=== PATIENT | male | born 1975 | race Hispanic/Latino ===

== ENCOUNTER 2023-02-14 07:14 | Day surgery (SDC) | payer OTHER ==
[2023-02-09 08:55] LABS: BASOPHILS # (AUTO) 0.04 K/uL (0.00-0.20); BASOPHILS % (AUTO) 0.6 % (0.0-5.0); EOSINOPHILS # (AUTO) 0.22 K/uL (0.00-0.70); EOSINOPHILS % (AUTO) 3.2 % (0.0-8.0); HEMATOCRIT 43.7 % (42-54); IMMATURE GRANULOCYTE ABSOLUTE 0.02 K/uL (0-1); LYMPHOCYTES # (AUTO) 2.7 K/uL (1.0-4.8); LYMPHOCYTES % (AUTO) 39.5 % (21.0-51.0); MEAN CORPUSCULAR HEMOGLOBIN 30.9 pg (27.0-33.0); MEAN CORPUSCULAR HGB CONC 35.2 g/dL (32.0-36.0); MEAN CORPUSCULAR VOLUME 87.6 fL (79-99); MONOCYTES # (AUTO) 0.4 K/uL (0.1-1.0); MONOCYTES % (AUTO) 6.4 % (3.0-13.0); NEUTROPHILS # (AUTO) 3.4 K/uL (1.8-7.7); PLATELET COUNT (AUTO) 228 K/uL (130-400); RED BLOOD CELL COUNT(AUTO) 4.99 MIL/uL (4.50-6.20); RED CELL DISTRIBUTION WIDTH 13.5 % (11.0-15.5); WHITE BLOOD COUNT (AUTO) 6.8 K/uL (4.8-10.8)
[2023-02-09 09:05] LABS: POTASSIUM 3.7 mmol/L (3.5-5.1)
[2023-02-09 09:15] LABS: INR 0.94 (0.85-1.15); PROTHROMBIN TIME 10.9 SEC (9.6-11.6)
[2023-02-09 09:16] LABS: PARTIAL THROMBOPLASTIN TIME 32.7 SEC (26.3-35.5)
[2023-02-09 09:37] VITALS: BP 152/85; PULSE 63; RESP 16
[2023-02-14] VITALS (17 sets, daily range): BP systolic 96–118; BP diastolic 55–72; PULSE 55–70; RESP 12–18
[~2023-02-14] VITALS: Ht 165.1 cm; Wt 106.2 kg
[~2023-02-14 07:14] MED LIST: ACAM333T7 PO; FLUO20CA36 PO; GABA600T10 PO; LISI20TA24 PO; METF-446 PO; TRAZ-187 PO
[2023-02-14] MEDS ORDERED: 0.9%NACL 1000ML 1,000 ML IV ONE (08:05)
[2023-02-14] MEDS ORDERED: CEFAZOLIN SODIUM 1 GM VIAL ONE (08:05)
[2023-02-14] MEDS ORDERED: BUPIVACAINE/PF 0.5% 30ML VIAL ONE (08:15)
[2023-02-14] MEDS ORDERED: FENTANYL CITRATE PF 50 MCG/1 ML 2ML VIAL ONE ×3 (08:43→08:54)
[2023-02-14] MEDS ORDERED: MIDAZOLAM HCL 1 MG/ML 2ML VIAL ONE (08:43)
[2023-02-14] MEDS ORDERED: LIDOCAINE PF 100MG/5ML (2%) SYRINGE 5ML ONE (08:53)
[2023-02-14] MEDS ORDERED: SUCCINYLCHOLINE 200MG/10ML SYR ONE (08:53)
[2023-02-14] MEDS ORDERED: DEXAMETHASONE SOD PHOSPHATE 10MG/ML 1ML VIAL ONE (08:53)
[2023-02-14] MEDS ORDERED: NEOSTIGMINE 5MG/5ML SYR IV ONE (08:53)
[2023-02-14] MEDS ORDERED: GLYCOPYRROLATE 1 MG/5 ML SYRINGE ONE (08:53)
[2023-02-14] MEDS ORDERED: PROPOFOL 10 MG/ML 20ML VIAL IV ONE (08:53)
[2023-02-14] MEDS ORDERED: ROCURONIUM 10MG/1ML SYR 10 MG/ML ML ONE (08:54)
[2023-02-14] MEDS ORDERED: CEFAZOLIN SODIUM 2 GM VIAL IVPB ONE (09:00)
[2023-02-14] MEDS ORDERED: KETOROLAC 30MG VIAL (30MG/ML) ONE (09:24)
[2023-02-14] MEDS ORDERED: ROPIVACAINE 0.5% 5MG/ML 30ML IJ ONE (09:26)
[2023-02-14] MEDS ORDERED: FENTANYL CITRATE PF 50 MCG/1 ML 5ML AMP IV ONE ×2 (09:26→12:55)
[2023-02-14] MEDS ORDERED: KETAMINE 50MG/ML SYRINGE 50 MG/ML DISP.SYRIN ONE (09:27)
[2023-02-14] MEDS ORDERED: MIDAZOLAM HCL 1 MG/ML 5ML VIAL ONE (09:27)
[2023-02-14] MEDS ORDERED: DOCU-116 PO (09:31)
[2023-02-14] MEDS ORDERED: METH-662 PO (09:31)
[2023-02-14] MEDS ORDERED: TRAM50TA4 PO (09:31)
== END 2023-02-14 11:46 | disposition home or self-care (01) ==
LOC: DAH 07:14
PROVIDERS: ATTEND Surgery
DX: K43.6 Other and unspecified ventral hernia with obstruction, without gangrene (principal); I10 Essential (primary) hypertension; E11.9 Type 2 diabetes mellitus without complications; E66.9 Obesity, unspecified; F32.A Depression, unspecified; Z79.01 Long term (current) use of anticoagulants; Z79.899 Other long term (current) drug therapy
CPT/HCPCS: 80048; 85025; 85610; 85730; 36415; 49592; 82948 ×2; 64488; A4663; J7030 ×2; J3010 ×5; J0690 ×2; J0330; J3490 ×2; J1100; J2710; J2001; J2250 ×2; J2704; J1885; J0665; J2795; A4649; A4930 ×2; A4215 ×2; A4223; A4222; A4221; A4216; A4510